=== PATIENT | male | born 1995 | race Caucasian/White ===

== ENCOUNTER 2019-02-22 13:20 | Emergency (ER) | payer BC, OTHER ==
[2019-02-22 13:38] VITALS: BP 148/85
--- NOTE | 2019-02-22 13:47 | ER Document Report ---
HPI - HPI Time Seen by Provider: 02/22/19 13:37 Context: Patient is a 23-year-old male who presents the emergency department with a chief complaint of right elbow pain. He was fishing yesterday and fell backwards and fell on his right elbow. He states that the pain is not that bad and when he got home he put in a brace on his elbow. He states that it helps with his pain. He has not taken any medication and does not wish to take any medication to help with the pain. - CONSTITUTIONAL Constitutional: DENIES: Fever, Chills - NEURO Neurology: DENIES: Headache - CARDIOVASCULAR Cardiovascular: DENIES: Chest pain - RESPIRATORY Respiratory: DENIES: Trouble Breathing, Coughing - MUSCULOSKELETAL Musculoskeletal: REPORTS: Extremity pain - right elbow - DERM Skin Color: Normal Skin Problems: None Past Medical History - Social History Smoking Status: Never Smoker Family History: Reviewed & Not Pertinent Vertical Provider Document - CONSTITUTIONAL Agree With Documented VS: Yes Exam Limitations: No Limitations General Appearance: No Apparent Distress - HEENT HEENT: Atraumatic, Normocephalic, PERRLA - NECK Neck: Normal Inspection - RESPIRATORY Respiratory: No Respiratory Distress - CARDIOVASCULAR Cardiovascular: Regular Rate, Regular Rhythm Pulses: Normal: Radial - MUSCULOSKELETAL/EXTREMETIES Musculoskeletal/Extremeties: FROM, Tender - right elbow; mild, No Edema. negative: Eccymosis - NEURO Level of Consciousness: Awake, Alert, Appropriate Motor/Sensory: No Motor Deficit, No Sensory Deficit - DERM Integumentary: Warm, Dry, No Rash Course - Re-evaluation Re-evalutation: 02/22/19 15:39 Patient's x-rays negative for any acute fracture at this time. I advised him to continue using his splint as needed. He will follow-up with his primary care provider in regards to this visit. Capillary refill less than 3 seconds. No vascular compromise noted. Radial pulse 2+. No edema or erythema noted. Follow-up precautions were given. Verbal discharge instructions were given to the patient. They verbalized understanding. They are stable for discharge. - Vital Signs Vital signs: Temp Pulse Resp BP Pulse Ox 98.0 F 94 16 148/85 H 98 02/22/19 13:36 02/22/19 13:36 02/22/19 13:36 02/22/19 13:36 02/22/19 13:36 Discharge - Discharge Clinical Impression: Right elbow pain Condition: Stable Disposition: HOME, SELF-CARE Additional Instructions: You were seen today in the emergency department for right elbow pain. There is no fracture at this time. Please follow-up with a primary care provider of your choice if needed. Please follow-up with one for general overall health. Continue to wear your splint to help with comfort. If you would like to take pain medication, I recommend [id number] Aleve also known as naproxen for your pain. Please take per bottle directions. Forms: Return to Work
--- NOTE | 2019-02-22 15:25 | RADIOLOGY REPORT (SQ) ---
EXAM DESCRIPTION: ELBOW RIGHT OVER 2 VIEWS COMPLETED DATE/TIME: 02/22/2019 3:12 pm REASON FOR STUDY: fall elbow pain COMPARISON: None. NUMBER OF VIEWS: Four views. TECHNIQUE: AP, lateral, and both oblique radiographic images acquired of the right elbow. LIMITATIONS: None. FINDINGS: MINERALIZATION: Normal. BONES: No acute fracture or dislocation. No worrisome bone lesions. JOINT: No effusion. SOFT TISSUES: No soft tissue swelling. No foreign body. OTHER: No other significant finding. IMPRESSION: NEGATIVE STUDY OF THE RIGHT ELBOW. NO RADIOGRAPHIC EVIDENCE OF ACUTE INJURY. TECHNICAL DOCUMENTATION: JOB ID: [id number] [employer]- All Rights Reserved Reading location - IP/workstation name: [email or web address]
== END 2019-02-22 15:59 | disposition home or self-care (01) ==
LOC: ER 13:20
DX: M25.521 Pain in right elbow (principal); W19.XXXA Unspecified fall, initial encounter
CPT/HCPCS: 99283